=== PATIENT | female | born 1960 ===

== ENCOUNTER 2017-02-09 07:59 | Day surgery (SDC) | payer SELFPAY ==
[2017-02-09] MEDS ORDERED: Lactated Ringer's 500 ML IV ONE (09:21)
[2017-02-09] MEDS ORDERED: Propofol 10 mg/ml Inj (20 ML) ONE (11:06)
[2017-02-09 11:46] VITALS: BP 84/50; PULSE 76; RESP 20; TEMP 97.5; O2SAT 98
== END 2017-02-09 12:35 | disposition home or self-care (01) ==
LOC: H.ENDO 07:59
PROVIDERS: ATTEND Internal Medicine Gastroenterology
DX: Z12.11 Encounter for screening for malignant neoplasm of colon (principal); E11.9 Type 2 diabetes mellitus without complications; E78.5 Hyperlipidemia, unspecified; I10 Essential (primary) hypertension; K64.0 First degree hemorrhoids
CPT/HCPCS: 45378; J2001; J2704; J7120